=== PATIENT | male | born 1940 | race Caucasian/White ===

== ENCOUNTER 2024-07-10 13:23 | Outpatient (CLI) | payer MEDICARE, SELFPAY ==
[2024-07-10 19:14] LABS: Anion Gap 9 mmol/L (4-12); Blood Urea Nitrogen 15 mg/dL (9-20); Calcium 9.2 mg/dL (8.4-10.2); Carbon Dioxide 27 mmol/L (22-30); Chloride 101 mmol/L (98-107); Estimated Glomerular Filt Rate 49; Glucose 168 mg/dL (65-110); Potassium 3.7 mmol/L (3.4-5.0); Sodium 137 mmol/L (137-145)
== END 2024-07-10 13:24 | disposition home or self-care (01) ==
PROVIDERS: PCP Family Medicine; Visit Provider Family Medicine
DX: E87.1 Hypo-osmolality and hyponatremia (principal)
CPT/HCPCS: 36415; 80048